=== PATIENT | female | born 1950 | race Caucasian/White ===

== ENCOUNTER 2022-01-12 11:31 | Emergency (ER) | payer MEDICARE, SELFPAY ==
--- NOTE | ~2022-01-12 | XR_ITS ---
EXAMINATION: XR chest 2V EXAM DATE: 01/12/2022 11:59 INDICATION: Cough X 3 1/2 Weeks. Hx. Rt Sided Breast Ca. . TECHNIQUE: Frontal and lateral projections of the chest obtained and reviewed. There is no prior pablito dy for comparison. FINDINGS: The lungs are hyperinflated which can be seen with chronic obstructive pulmonary disease ( a clinical diagnosis of functional impairment), but is not diagnostic of it. No confluent consolidati on, pneumothorax or pleural effusion suspected. Cardiomediastinal silhouette is normal. There are no osseous abnormalities identified. There are cholecystectomy clips. IMPRESSION: No acute cardiac pulmonary findings. Hyperinflation. Reviewed, dictated and finalized at location A.
[2022-01-12 11:40] VITALS: BP 136/78; PULSE 76; RESP 14; TEMP 37.6; O2SAT 100
--- NOTE | 2022-01-12 11:52 | ED.URI ---
HPI - URI/Sore Throat General Chief Complaint: Upper Respiratory Infection Stated Complaint: Sinus Congestion/Cough Time Seen by Provider: 01/12/22 11:52 Source: patient, RN notes reviewed and old records reviewed Mode of arrival: ambulatory Limitations: no limitations History of Present Illness HPI Narrative: 71 year old female who presents to [facility] with complaints of 3 week duration of productive cough with some sinus pain and pressure. Patient reports that cough is productive at times of yellowish mucous, reports that she has some tightness to mid chest with cough. Patient states that she was seen at an [facility] in [place] and initially given Z-pack for sinus congestion and bronchitis but it caused her dizziness so the next day on January 01 she was prescribed Augmentin for 10 days and she completed all of that prescription. Patient reports that she has been taking Tessalon Perles for the cough which helps some,cold and flu OTC medication and also some sinus spray.Patient states that she has some ear pressure with popping also.Patient has had COVID vaccinations and also flu shot this season. MD elicited complaint: cough, rhinorrhea, nasal congestion and sinus pain Related Data Home Medications Medication Instructions Recorded Confirmed levothyroxine [Euthyrox] 50 mcg PO DAILY 01/12/22 01/12/22 tamoxifen 20 mg PO DAILY 01/12/22 01/12/22 Allergies Allergy/AdvReac Type Severity Reaction Status Date / Time azithromycin Allergy Dizziness Verified 01/12/22 11:52 Review of Systems Review of Systems: CONSTITUTIONAL: Denies fever, chills, or sweats. EYES: Denies visual changes, redness, or discharge. ENT: Positive for rhinorrhea, congestion,no sore throat,positive for ear pressure and popping. CARDIOVASCULAR: chest tightness with cough, no palpitations, or edema. RESPIRATORY: Positive for cough denies dyspnea. GASTROINTESTINAL: Denies abdominal pain, nausea, vomiting, or diarrhea. GENITOURINARY: Denies dysuria or hematuria. SKIN: Denies rash or itching. MUSCULOSKELETAL: Denies back pain, joint pain, or myalgia. NEUROLOGIC: Denies headache, numbness, or weakness. PSYCHIATRIC: Denies anxiety or depression. All systems reviewed & are unremarkable except as noted in HPI and below PMFSH Past Medical History Medical History (Updated 01/13/22 @ 00:00 by Background Daemon) Breast cancer Bronchitis Hypothyroidism Sinus problem Surgical History Surgical History (Updated 01/12/22 @ 12:16 by Christel Medel NP) H/O right inguinal hernia repair History of hysterectomy History of lumpectomy of right breast Social History Social History (Updated 01/12/22 @ 12:15 by Christel Medel NP) Smoking status: Never smoker Substance use: never Living arrangements: with family Gender identity (if verbalized by the patient): Female Comments At time of signature, agree with nursing past medical, surgical, social and family history. There is no relevant family history pertinent to the presenting complaint Exam Narrative: GENERAL: Well-appearing, well-nourished, and in no acute distress. HEAD: Normocephalic, atraumatic. EYES: PERRLA and EOMI. ENT: Nares with membranes red with clear rhinorrhea no epistaxis. Mucous membranes moist.TM's normal with dull light reflex, throat mild redness with no lesions or exudates no tonsil swelling NECK: Supple.no lymphadenopathy CHEST: Decreased breath sounds to auscultation. No respiratory distress.Loose cough of yellow mucousSAO2 100% on room air, denies any dyspnea with rest or exertion. HEART: Regular rate and rhythm. No murmur heard. Normal peripheral pulses. ABDOMEN: Soft, nontender, nondistended, normal active bowel sounds. EXTREMITIES: Normal range of motion. No edema. SKIN: Warm, dry, no rash. NEURO: No focal deficits. Alert and oriented x3. Course Course Level of Care: Express Care Visit Vital Signs Vital signs: Vital Signs Temperature 37.6 C H 01/12/22 11:40 Pul
[2022-01-12 11:54] VITALS: BP 136/78; PULSE 76; RESP 14; TEMP 37.6; O2SAT 100
== END 2022-01-12 12:31 | disposition home or self-care (01) ==
PROVIDERS: Emergency Provider Registered Nurse
DX: J06.9 Acute upper respiratory infection, unspecified (principal); R05.9 Cough, unspecified; E03.9 Hypothyroidism, unspecified; Z85.3 Personal history of malignant neoplasm of breast
CPT/HCPCS: 71046; 99213; G0463